=== PATIENT | female | born 1965 | race Caucasian/White ===

== ENCOUNTER 2017-08-05 19:22 | Emergency (ER) | payer OTHER ==
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
--- NOTE | 2017-08-07 09:15 | CR ---
Elbow Min 3V Rt FINDINGS: There is normal alignment. There is no evidence of fracture. No significant degenerative fi ndings are demonstrated. There is no joint effusion. The soft tissues appear unremarkable. IMPRESSION: Negative exam of the elbow.
--- NOTE | 2017-08-07 09:16 | CR ---
Scapula Findings: The scapula demonstrates no evidence for fracture. There is normal alignment of the glenohu meral as well as AC joints. Impression: 1. Negative exam of the scapula.
== END 2017-08-05 21:51 | disposition home or self-care (01) ==
LOC: JP.ED 19:22
DX: S50.11XA Contusion of right forearm, initial encounter (principal); S40.011A Contusion of right shoulder, initial encounter; V86.92XA Unspecified occupant of snowmobile injured in nontraffic accident, initial encounter
CPT/HCPCS: 73010-26-RT; 73010-RT; 73080-26-RT; 73080-RT; 99284